=== PATIENT | female | born 1975 | race Caucasian/White ===

== ENCOUNTER 2018-08-15 19:05 | Emergency (ER) | payer BC ==
--- NOTE | 2018-08-15 20:36 | CRLCR ---
INDICATION: Follow up history of pneumothorax. TECHNIQUE: Two views. FINDINGS: Moderate left pneumothorax or pleural reflection projecting up to 3.5 cm below the undersurface of the 2nd rib at the apex and 17 mm from the chest wall at the lung base laterally. Moderately extensive subcutaneous emphysema through the left chest and flank and into the neck bilaterally. Thin linear opacity left lateral to the cardiomediastinal silhouette. This is presumably pleural flexion. No cardiomediastinal shift. Right lung is clear. Dictated by Jordi Morillo MD @ Aug 15 2018 8:34PM Signed by Dr. Jordi Morillo @ Aug 15 2018 8:34PM
[2018-08-15] MEDS ORDERED: HYDROmorphone 0.5 MG/0.5 ML Syringe IM ONE (21:12)
--- NOTE | 2018-08-15 21:52 | CRLCT ---
INDICATION: HISTORY COMPARISON: COMPARISON DATE TECHNIQUE: CT examination of the chest was performed without contrast enhancement. 3 mm thick axial sections were obtained from above the apices of the lungs to the lung bases. Please note that all CT scans at this facility use dose modulation, iterative reconstruction, and/or weight-based dosing when appropriate to reduce radiation dose to as low as reasonably achievable. FINDINGS: There is massive subcutaneous emphysema at the base of the neck and in the left chest related to a 20 percent left pneumothorax. There is a moderate amount of pleural effusion in the posterior left lung base associated with the pneumothorax, making this a hydro pneumothorax. There is moderate atelectasis of the posterior left lung base and mild linear atelectasis in the lateral left lung base related to the effusion. There is moderate pneumomediastinum without definite pneumopericardium. There are acute, moderately displaced fractures of the left lateral 6th and 7th ribs. The right lung is clear except for minimal posterior basilar dependent atelectasis. There is no sign of any pulmonary nodules or masses. There is no sign of mediastinal or hilar mass or adenopathy. Sensitivity is limited by lack of contrast enhancement. The heart and great vessels are otherwise normal in appearance. There is no sign of supraclavicular or axillary mass or adenopathy. The visualized superior liver, spleen, pancreas, kidneys, and adrenals are normal in appearance. The rest of the osseous structures are normal in appearance for the patient`s age. IMPRESSION: 20 percent left hydropneumothorax related to acute, moderately displaced fractures of the left lateral 6th and 7th ribs. Massive left chest wall and bilateral neck base subcutaneous emphysema with moderate pneumomediastinum. No sign of any midline shift to suggest tension physiology. Moderate atelectasis of the posterior left lung base related to the pleural effusion. Please note that all CT scans at this facility use dose modulation, iterative reconstruction, and/or weight-based dosing when appropriate to reduce radiation dose to as low as reasonably achievable. Dictated by iSngh Calle MD @ Aug 15 2018 9:42PM Signed by Dr. Singh Calle @ Aug 15 2018 9:51PM
--- NOTE | 2018-08-15 22:12 | EDM.PDOC ---
ED HPI GENERAL MEDICAL PROBLEM - General Chief Complaint: General Stated Complaint: BROKEN RIBS & SWOLLEN FACE/NECK Time Seen by Provider: 08/15/18 19:30 Source of Information: Reports: Patient History Limitations: Reports: No Limitations - History of Present Illness INITIAL COMMENTS - FREE TEXT/NARRATIVE: pt arrived with a known history of a 20 % pneumothorax. Tod ay she developed marked subq emohysema of the face and neck area. This was very uncomfortable for her. She did not develop sob. Onset: Gradual, Other ( Over the past 36 hours. ) Duration: Hour(s): Location: Reports: Face, Neck, Chest Associated Symptoms: Reports: No Other Symptoms Left Chest Pain Score (Numeric/FACES): 7 - Related Data Allergies Allergy/AdvReac Type Severity Reaction Status Date / Time No Known Allergies Allergy Verified 08/15/18 19:22 Home Meds: Home Meds Cyclobenzaprine [Flexeril] 10 mg PO TID 08/15/18 [History] Ibuprofen 600 mg PO QID 08/15/18 [History] Naproxen 500 mg PO BID 08/15/18 [History] oxyCODONE 5 mg PO QID 08/15/18 [History] Past Medical History Respiratory History: Reports: Other (See Below) Other Respiratory History: pneumothorax - Infectious Disease History Infectious Disease History: Reports: Chicken Pox Social & Family History - Tobacco Use Smoking Status *Q: Current Every Day Smoker Years of Tobacco use: 20 Packs/Tins Daily: 0.5 - Caffeine Use Caffeine Use: Reports: Coffee - Recreational Drug Use Recreational Drug Use: No ED ROS GENERAL - Review of Systems Review Of Systems: See Below Constitutional: Reports: No Symptoms HEENT: Reports: No Symptoms Respiratory: Reports: Other (pt has 2 fractured ribs on the left and a known history of a pneumothorax. ) Cardiovascular: Reports: No Symptoms Endocrine: Reports: No Symptoms GI/Abdominal: Reports: No Symptoms : Reports: No Symptoms Musculoskeletal: Reports: No Symptoms Skin: Reports: No Symptoms ED EXAM, GENERAL - Physical Exam Exam: See Below Free Text/Narrative:: pt has developed marked swelling of her face and neck today. Shas a known pneumothorax on the left. She has devenite rice crispy like feel to the skin-- subq emphysema. Exam Limited By: No Limitations General Appearance: Alert, Moderate Distress Ears: Normal TMs Nose: Normal Inspection Throat/Mouth: Other (pt has subq air in the tissues of the neck) Head: Atraumatic Respiratory/Chest: No Respiratory Distress, Other (pt has o2 sats in the 95 and 96 range. ) Cardiovascular: Regular Rate, Rhythm GI/Abdominal: Soft, Non-Tender (Female) Exam: Deferred Rectal (Female) Exam: Deferred Back Exam: Normal Inspection Extremities: Normal Inspection Neurological: Alert, Oriented, Normal Cognition Psychiatric: Anxious Course - Vital Signs Last Recorded V/S: Last Vital Signs Temp 35.3 C 08/15/18 19:32 Pulse 79 08/15/18 19:32 Resp 23 H 08/15/18 19:32 BP 129/81 08/15/18 19:32 Pulse Ox 98 08/15/18 19:32 - Orders/Labs/Meds Meds: Medications Discontinued Medications Generic Name Dose Route Start Last Admin Trade Name Freq PRN Reason Stop Dose Admin Hydromorphone HCl 0.5 mg 08/15/18 21:12 08/15/18 21:18 Dilaudid IM 08/15/18 21:13 0.5 mg ONETIME ONE Administration - Re-Assessments/Exams Free Text/Narrative Re-Assessment/Exam: 08/15/18 22:26 pt has a large amount of subq emphysema in her face and neck area. She had a cat scan of the chest which shows some pleuural effusion and a 20 % pneumothorax which is stable. Pt is stable from a resp status. Departure - Departure Time of Disposition: 22:14 Disposition: Home, Self-Care 01 Condition: Fair Clinical Impression: Pneumothorax on left, Pleural effusion, Traumatic subcutaneous emphysema, subsequent encounter - Discharge Information Instructions: Pneumothorax, Pleural Effusion Referrals: PCP,None [Primary Care Provider] - Forms: ED Department Discharge Care Plan Goals: cont meds the same, follow up on Monday in [place], percocet 5/325 q6h prn for pain # 12, cool packs to the neck and facial area. rtc if pt should develop sob.
== END 2018-08-15 22:30 | disposition home or self-care (01) ==
LOC: JP.ED 19:05
DX: T79.7XXD Traumatic subcutaneous emphysema, subsequent encounter (principal); J90 Pleural effusion, not elsewhere classified; J93.9 Pneumothorax, unspecified; F17.210 Nicotine dependence, cigarettes, uncomplicated; Z79.899 Other long term (current) drug therapy
CPT/HCPCS: 71046; 71250; 96372; 99284; J1170

== ENCOUNTER 2020-03-16 07:55 | Day surgery (SDC) | payer BC ==
[~2020-03-16 07:55] MED LIST: Midazolam 1 MG/ML 2 ML SDV ONE; Propofol 200 MG/20 ML SDV ONE; fentaNYL 100 MCG/2 ML SDV ONE
[2020-03-16] MEDS ORDERED: Sodium Chloride 0.9% 1,000 ML IV SCH (09:00)
[2020-03-16] MEDS ORDERED: Propofol 200 MG/20 ML SDV ONE (09:21)
--- NOTE | 2020-03-16 15:08 | OR ---
DATE OF PROCEDURE: 03/16/2020 SURGEON: Yao Padilla MD PROCEDURE: Colonoscopy. FINDINGS: 1. Sigmoid colon polyp, approximately 5 mm, completely removed using cold biopsy forceps. 2. Banding, internal hemorrhoid. 3. Probable external hemorrhoids. COMPLICATIONS: None. [employer]: None. ANESTHESIA: MAC. PREOPERATIVE DIAGNOSIS: GI bleeding. POSTOPERATIVE DIAGNOSIS: GI bleeding. RISKS: Risks, benefits, alternatives, and limitations including, but not limited to, infection, bleeding, perforation, and we also discussed false positives and false negatives of both colonoscopy and hemorrhoid banding. PROCEDURE IN DETAIL: Patient is placed in left lateral decubitus position. Digital rectal exam was performed without abnormality except for prominent external hemorrhoids. The scope was introduced and advanced atraumatically to the ileocecal valve and a photo was taken. The scope was brought back to the ascending, transverse, descending colon, and retroflexed. In the sigmoid colon, the aforementioned polyp was identified and completely removed. On retroflexion, prominent internal hemorrhoid, this was banded x1. No other abnormalities were noted. The patient tolerated the procedure well. Greater than 8 minutes was spent removing the scope and the prep was acceptable, approximately 90% luminal surface could be seen. Yao Padilla MD /[id number]
== END 2020-03-16 10:50 | disposition home or self-care (01) ==
LOC: JP.SDS 07:55
PROVIDERS: ATTEND Surgery
DX: K63.5 Polyp of colon (principal); K64.8 Other hemorrhoids; K64.4 Residual hemorrhoidal skin tags; F17.200 Nicotine dependence, unspecified, uncomplicated
CPT/HCPCS: 45380; 45398; 81025; J2250; J2704; J3010; J7030; 88305

== ENCOUNTER 2024-06-06 07:16 | Day surgery (SDC) | payer BC ==
[2024-06-06] MEDS ORDERED: fentaNYL 100 MCG/2 ML SDV ONE (07:21)
[2024-06-06] MEDS ORDERED: Midazolam 1 MG/ML 2 ML SDV ONE (07:21)
[2024-06-06] MEDS ORDERED: Propofol 200 MG/20 ML SDV ONE (07:21)
[2024-06-06] MEDS: Lactated Ringers 1,000 ML IV SCH (07:43)
[2024-06-06] MEDS: Bupivacaine 0.5% 50 ML MDV ONE (09:22)
[2024-06-06] MEDS: Lidocaine 1% with EPINEPHrine 1:100,000 50 ML MDV ONE (09:22)
[2024-06-06] MEDS ORDERED: Lactated Ringers 1,000 ML ONE (09:27)
[2024-06-06] MEDS: ceFAZolin 2 GM in Premix Bag 1 BAG IV ONE (11:20)
== END 2024-06-06 10:35 | disposition home or self-care (01) ==
LOC: JP.SDS 07:16
PROVIDERS: ATTEND Surgery
DX: M60.032 Infective myositis, left forearm (principal); E66.9 Obesity, unspecified
CPT/HCPCS: 25076; J0665; J0690; J2250; J2704; J3010; J7120; 01810-QZ